=== PATIENT | female | born 1935 | race Hispanic/Latino ===

== ENCOUNTER 2017-06-29 13:45 | Emergency (ER) | payer MEDICARE, BC ==
[2017-06-29 13:51] VITALS: RESP 18; TEMP 98; O2SAT 97; BMI 35.1
[2017-06-29] MEDS ORDERED: TDAP Vaccine 0.5 mL Syr IM ONE (14:00)
--- NOTE | 2017-06-29 14:03 | ED PDOC ---
Arrival/HPI - General Chief Complaint: Trauma Time Seen by Provider: 06/29/17 13:56 Historian: Patient - History of Present Illness Narrative History of Present Illness (Text): 06/29/17 14:00 82 y/o female w/ pmhx of htn, hld, s/p hysterectomy , cad on asa presents s/p accidental trip and fall backwards after going up an escalator running in the direction against her, denies loc/antecedent symptoms, c/o occipital swelling/ dull headache but no nausea /vomiting nor focal nor neurological deficits. PMD: Dr. Checo Gonzalez Past Medical History - Provider Review Nursing Documentation Reviewed: Yes - Infectious Disease Hx of Infectious Diseases: None - Cardiac Hx Cardiac Disorders: Yes Hx Hypertension: Yes Other/Comment: stent in L carotid - Pulmonary Hx Respiratory Disorders: No - Neurological Hx Neurological Disorder: No - HEENT Hx HEENT Disorder: Yes Hx Glaucoma: Yes Other/Comment: glasses - Renal Hx Renal Disorder: No - Endocrine/Metabolic Hx Endocrine Disorders: No - Hematological/Oncological Hx Blood Transfusions: No Hx Blood Transfusion Reaction: No - Integumentary Hx Dermatological Disorder: No Hx Basal Cell Carcinoma: No - Musculoskeletal/Rheumatological Hx Musculoskeletal Disorders: Yes Hx Arthritis: Yes - Gastrointestinal Hx Gastrointestinal Disorders: No - Genitourinary/Gynecological Hx Genitourinary Disorders: No - Psychiatric Hx Psychophysiologic Disorder: No Hx Substance Use: No - Surgical History Hx Hysterectomy: Yes Other/Comment: 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 stent in L carotid - Anesthesia Hx Anesthesia: Yes Hx Anesthesia Reactions: No Hx Malignant Hyperthermia: No Family/Social History - Physician Review Nursing Documentation Reviewed: Yes Family/Social History: No Known Family HX Smoking Status: Never Smoked Hx Alcohol Use: No Hx Substance Use: No Allergies/Home Meds Allergies/Adverse Reactions: Allergies amoxicillin Allergy (Verified 06/29/17 13:57) RASH Penicillins Allergy (Verified 06/29/17 13:57) RASH Home Medications: Home Meds Medication Instructions Recorded Confirmed Aspirin 81 mg PO DAILY 03/06/13 06/29/17 Atorvastatin Calcium 10 mg PO DAILY 03/06/13 06/29/17 Bimatoprost [Lumigan 5 ml] 5 ml OP DAILY 03/06/13 06/29/17 Dorzolamide HCl/Timolol Maleat 10 ml OP BID 03/06/13 06/29/17 [Dorzolamide Hydrochloride - Timolol Maleate 2] Losartan/Hydrochlorothiazide 1 tab PO DAILY 06/29/17 06/29/17 [Losartan-Hctz 100-25 mg Tab] Metoprolol Succinate [Toprol XL] 50 mg PO DAILY 06/29/17 06/29/17 Review of Systems - Physician Review All systems were reviewed & negative as marked: Yes - Review of Systems Constitutional: Normal Eyes: Normal ENT: Normal Respiratory: Normal Cardiovascular: Normal Gastrointestinal: Normal Genitourinary Female: Normal Musculoskeletal: Normal Skin: Normal Neurological: Normal Endocrine: Normal Hemo/Lymphatic: Normal Psychiatric: Normal Physical Exam Vital Signs Reviewed: Yes Vital Signs Temp Pulse Resp BP Pulse Ox 06/29/17 15:45 79 18 158/79 H 97 06/29/17 13:50 98.0 F 86 18 164/82 H 97 Temperature: Afebrile Blood Pressure: Normal Pulse: Regular Respiratory Rate: Normal Appearance: Positive for: Well-Appearing, Non-Toxic, Comfortable Pain Distress: None Mental Status: Positive for: Alert and Oriented X 3 - Systems Exam Head: Present: Atraumatic, Normocephalic, Tenderness, Contusion, Swelling, Other (3x2 cm occipital hematoma, w/ superfical overlying abrasion ) Pupils: Present: PERRL Extroacular Muscles: Present: EOMI Conjunctiva: Present: Normal Mouth: Present: Moist Mucous Membranes Neck: Present: Normal Range of Motion Respiratory/Chest: Present: Clear to Auscultation, Good Air Exchange. No: Respiratory Distress, Accessory Muscle Use Cardiovascular: Present: Regular Rate and Rhythm, Normal S1, S2. No: Murmurs Abdomen: Present: Normal Bowel Sounds. No: Tenderness, Distention, Peritoneal Signs Back: Present: Normal Inspection Upper Extremity: Present: Normal Inspection. No: Cyanosis, Edema Lower Extremity: Present: Normal Inspection, Other (b/l ilium ttp ). No: Edema Neurological: Present: GCS=15, CN II-XII Intact, Speech Normal Skin: Present: Warm, Dry, Normal Color. No: Rashes Psychiatric: Present: Alert, Oriented x 3, Normal Insight, Normal Concentration Medical Decision Making ED Course and Treatment: 06/29/17 14:06 Impression: A 82 year old female with s/p mechanical fall resulting in occipital swelling and dull headache. Plan: -- Cervical SPinal CT -- Head CT -- Chest X-Ray -- Pelvis X-Ray -- Tylenol -- Boostrix Vaccine -- Reassess and disposition Progress Notes: 06/29/2017 15:[address] IMPRESSION: No acute findings. Dictator: Checo Kidd MD 06/29/2017 15:[address] IMPRESSION: No acute findings. Dictator: Checo Kidd MD 06/29/2017 15:37 Chest X-Ray IMPRESSION: No active disease. Dictator: Checo Kidd MD 06/29/2017 15:37 Pelvis X-Ray IMREPSSION: Unremarkable radiographs of the pelvis. Dictator: Checo Kidd MD 06/29/17 17:10 serial neurological exams wnl , pt ambulatory and feels better, stable for discharge , with head injury directions and advised pmd f/u . - RAD Interpretation Radiology Orders: 06/29/17 13:57 CERVICAL SPINE W/O CONTRAST [CT] Stat HEAD W/O CONTRAST [CT] Stat 06/29/17 13:58 CHEST TWO VIEWS (PA/LAT) [RAD] Stat 06/29/17 13:59 PELVIS ONE VIEW [RAD] Stat - Medication Orders Current Medication Orders: Discontinued Medications Acetaminophen (Tylenol 325mg Tab) 650 mg PO STAT STA Stop: 06/29/17 14:01 Last Admin: 06/29/17 14:35 Dose: 650 mg [facility] Pain/Vitals Document 06/29/17 14:35 AD (Rec: 06/29/17 14:35 AD [id number]) Pain Reassessment Is This A Pain ReAssessment? No Presence of Pain Presence of Pain Yes Pain Scale Used Pain Scale Used Numeric Location Intensity 7 Scale Used Numeric Pain Behavior Facial Grimacing Tetanus/Reduced Diphtheria/Acell Pertussis (Boostrix Vaccine Inj) 0.5 ml IM .ONCE ONE Stop: 06/29/17 14:01 Last Admin: 06/29/17 14:34 Dose: 0.5 ml [facility] Immunization Data Document 06/29/17 14:34 AD (Rec: 06/29/17 14:35 AD [id number]) Immunization Data Vaccine Lot Number [id number] Vaccine Expiration Date 07/29/19 Site Given Left Deltoid Route Intramuscular Immunization Units ml Disposition/Present on Arrival - Present on Arrival Any Indicators Present on Arrival: No History of DVT/PE: No History of Uncontrolled Diabetes: No Urinary Catheter: No History of Decub. Ulcer: No History Surgical Site Infection Following: None - Disposition Have Diagnosis and Disposition been Completed?: Yes Diagnosis: Head injury, Fall (on) (from) other stairs and steps, initial encounter Disposition: HOME/ ROUTINE Disposition Time: 17:12 Patient Plan: Discharge Condition: GOOD Discharge Instructions (ExitCare): Head Injury (ED), Concussion (ED) Print Language: LUXEMBOURGISH Additional Instructions: Retrun for worsiening symptoms especially those listed in your dicharge papers such as focal weakness, gait instability or persistent nause /vomiting. Referrals: Checo Gonzalez MD [Primary Care Provider] - Follow up with primary Forms: [employer] Online Scheduling (Maori)
--- NOTE | 2017-06-29 15:31 | CT ---
PROCEDURE: CT HEAD WITHOUT CONTRAST. HISTORY: occipital point of impact COMPARISON: None available. TECHNIQUE: Axial computed tomography images were obtained through the head/brain without intravenous contrast. Radiation dose: Total exam DLP = 714 mGy-cm. This CT exam was performed using one or more of the following dose reduction techniques: Automated exposure control, adjustment of the mA and/or kV according to patient size, and/or use of iterative reconstruction technique. FINDINGS: HEMORRHAGE: No intracranial hemorrhage. BRAIN: No mass effect or edema. No atrophy or chronic microvascular ischemic changes. VENTRICLES: Unremarkable. No hydrocephalus. CALVARIUM: There is a scalp hematoma over the posterior parietal skull. There is no associated fracture PARANASAL SINUSES: Unremarkable as visualized. No significant inflammatory changes. MASTOID AIR CELLS: Unremarkable as visualized. No inflammatory changes. OTHER FINDINGS: None. IMPRESSION: No acute findings
--- NOTE | 2017-06-29 15:35 | CT ---
PROCEDURE: CT Cervical Spine without contrast HISTORY: Patient fell backwards COMPARISON: None available. TECHNIQUE: Axial computed tomography images were obtained of the cervical spine without the use of intravenous contrast. Coronal and sagittal reformatted images were created and reviewed. Radiation dose: Total exam DLP = 674 mGy-cm. This CT exam was performed using one or more of the following dose reduction techniques: Automated exposure control, adjustment of the mA and/or kV according to patient size, and/or use of iterative reconstruction technique. FINDINGS: VERTEBRAE: No fracture. Normal alignment. No destructive bony lesion. DISCS/SPINAL CANAL/NEURAL FORAMINA: No significant central canal or neural foraminal stenosis. There is severe disc degeneration at C5-6 and C6-7. PARASPINAL SOFT TISSUES: Unremarkable. OTHER FINDINGS: None. IMPRESSION: No acute findings
--- NOTE | 2017-06-29 15:39 | RAD ---
HISTORY: s/p fall COMPARISON: No prior. TECHNIQUE: Chest PA and lateral FINDINGS: LUNGS: No active pulmonary disease. PLEURA: No significant pleural effusion identified. No pneumothorax apparent. CARDIOVASCULAR: Normal. OSSEOUS STRUCTURES: No significant abnormalities. VISUALIZED UPPER ABDOMEN: Normal. OTHER FINDINGS: None. IMPRESSION: No active disease.
--- NOTE | 2017-06-29 15:40 | RAD ---
PROCEDURE: Radiographs of the pelvis. HISTORY: fall, b/l ilium pain COMPARISON: None. FINDINGS: BONES: Pelvic Bones: Unremarkable. Hips: Grossly unremarkable. JOINTS: Sacroiliac Joints: Unremarkable. Pubic Symphysis: Unremarkable. OTHER FINDINGS: None. IMPRESSION: Unremarkable radiographs of the pelvis.
[2017-06-29 15:51] VITALS: BP 158/79; PULSE 79
== END 2017-06-29 17:30 | disposition home or self-care (01) ==
LOC: ED 13:45
DX: S09.90XA Unspecified injury of head, initial encounter (principal); W01.0XXA Fall on same level from slipping, tripping and stumbling without subsequent striking against object, initial encounter; I10 Essential (primary) hypertension; E78.5 Hyperlipidemia, unspecified; Z79.82 Long term (current) use of aspirin; Z23 Encounter for immunization; I25.10 Atherosclerotic heart disease of native coronary artery without angina pectoris; Z88.0 Allergy status to penicillin

== ENCOUNTER 2018-11-23 06:08 | Outpatient (CLI) | payer MEDICARE, BC | END 2018-11-23 06:09 | disposition home or self-care (01) | LOC: CARDIO 06:08 ==

== ENCOUNTER 2018-12-22 06:11 | Day surgery (SDC) | payer MEDICARE, BC ==
[2018-12-12 14:05] VITALS: BMI 34.2
--- NOTE | 2018-12-22 04:00 | HP ---
DATE OF EXAM: 12/22/2018 REASON FOR ADMISSION: Left heart cath possible angioplasty, abnormal stress test. BRIEF CLINICAL HISTORY: This is an 83-year-old female with past medical history significant for hypertension, hyperlipidemia, aortic stenosis, aortic regurgitation, admitted for elective cardiac cath possible angioplasty because of abnormal stress test. The patient denies any chest pain, shortness of breath, any palpitations. PAST MEDICAL HISTORY: Significant for moderate aortic stenosis, moderate aortic regurgitation, moderate mitral regurgitation, hypertension, hyperlipidemia. SOCIAL HISTORY: Denies any history of alcohol abuse. CURRENT MEDICATIONS: The patient is taking Tylenol one tablet every 6 hours p.r.n., eye drops timolol maleate in both eyes twice a day, Patricia-D, meloxicam 15 mg daily, Meclizine, Antivert 25 mg daily, Losartan 100 mg/hydrochlorothiazide 25 mg daily, carbamazepine extended release 100 mg twice a day, Lumigan eye drops 2.5 mg twice, atorvastatin 10 mg daily, aspirin 81 mg daily, metoprolol tartrate 25 mg p.o. b.i.d. ALLERGIES: AMOXICILLIN, PENICILLIN, AND SEASONAL ALLERGIES. REVIEW OF SYSTEMS: As per HPI. PHYSICAL EXAMINATION GENERAL: As follows; height of the patient 5 feet 1 inch, weight of the patient 180 pounds, body mass index 35 kg/m2. VITAL SIGNS: Temperature afebrile, heart rate 64, blood pressure 160/80. HEENT: PERRLA. Extraocular muscles intact. NECK: Supple. No carotid bruits or thyromegaly. CHEST: Clear to auscultation. HEART: S1, S2 regular. ABDOMEN: Soft. EXTREMITIES: Clubbing and cyanosis negative. RECENT CARDIAC WORKUP FOLLOWS: The patient had an echocardiography done 11/10/2018, that shows ejection fraction 55%, moderate aortic stenosis, mean gradient 38 mmHg consistent with moderate aortic stenosis, [id number] aortic regurgitation, moderate mitral regurgitation, trace tricuspid regurgitation. The patient has a stress test dated 11/23/2018, that revealed abnormal myocardial profusion study, partial reversible anteroseptal inferolateral defect suspicious for ischemia, normal gated wall motion, ejection fraction reported 76% when comparison was made from the last study dated 10/20/2017, these anteroseptal and inferolateral ischemic changes are new as compared to before. IMPRESSION: An 83-year-old female with past medical history of hypertension, hyperlipidemia, glaucoma, abnormal stress with moderate aortic stenosis, moderate aortic regurgitation, moderate mitral regurgitation, admitted for elective cardiac cath possible angioplasty, abnormal stress test. Risks, benefits, alternative explained to the patient. The patient agreeable proceed for cardiac catheterization. Will load her with Plavix and await the blood is available, will proceed for cardiac catheterization. Further recommendation after the cardiac catheterization. Will follow with you. Thank you Dr. Quinones for providing us the opportunity in taking care of the patient, Gloria Millan Greg Gunn MD
[2018-12-22] MEDS ORDERED: Lidocaine PF 2% (5 ml) Inj (For Cardiac Arrhy) ONE (07:15)
[2018-12-22] MEDS ORDERED: Phenylephrine 10 mg/ml Inj ONE (07:15)
[2018-12-22] MEDS ORDERED: Verapamil 2 ML ONE (07:15)
[2018-12-22] MEDS ORDERED: Iodixanol 320 MG/ML 200 ML BOTTLE IV ONE (07:16)
[2018-12-22] MEDS ORDERED: Iodixanol 320 MG/ML 100 ML BOTTLE IV ONE (07:16)
[2018-12-22] MEDS ORDERED: Nitroglycerin 50mg in D5W 50 MG/250 ML BOTTLE IV ONE (07:16)
[2018-12-22] MEDS ORDERED: Iohexol 350mgl/ml 50 ML ONE (07:16)
[2018-12-22 07:18] LABS: BASO # 0.08 K/mm3 (0.0-2.0); BASO % 0.9 % (0.0-3.0); EOS # 0.5 (0.0-0.7); HEMOGLOBIN 13.2 g/dL (12.0-16.0); LYMPH % 23.4 % (22.0-35.0); MEAN CELL VOLUME 97.4 fl (80.0-105.0); MEAN CORPUSCULAR HEMOGLOBIN 31.2 pg (25.0-35.0); MEAN PLATELET VOLUME 10.3 fl (7.0-11.0); MONO # 0.8 (0.1-0.6); MONO % 9.2 % (1.0-6.0); RBC 4.23 10^6/uL (3.5-6.1); RED CELL DISTRIBUTION WIDTH 12.8 % (11.5-14.5); WHITE BLOOD COUNT 8.7 10^3/uL (4.5-11.0)
[2018-12-22 07:25] LABS: INR 0.98; PARTIAL THROMBOPLASTIN TIME 33.2 Seconds (26.9-38.3); PROTHROMBIN TIME 11.1 SECONDS (9.4-12.5)
[2018-12-22] MEDS ORDERED: Midazolam 2 MG/2 ML VIAL ONE ×2 (07:32→07:58)
[2018-12-22 07:43] LABS: LDL CHOLESTEROL 119 mg/dL (0-129)
[2018-12-22 07:51] LABS: BLOOD UREA NITROGEN 21 mg/dL (7-21); GFR NON-AFRICAN AMERICAN 60; HDL CHOLESTEROL 45 mg/dL (29-60)
[2018-12-22] MEDS ORDERED: Sodium Chloride 0.9% 1,000 ML IV SCH (09:30)
[2018-12-22 09:49] VITALS: TEMP 97.8
--- NOTE | 2018-12-22 10:15 | CPOSTOP ---
DATE: 12/22/2018 CARDIOVASCULAR LAB POST PROCEDURE DICTATING PHYSICIAN: Greg Gunn MD SHIPPING SUPPORT CLERK: Tejal door technician. TYPE OF ANESTHESIA: Moderate conscious sedation. Total 3 mg of Versed, 150 of fentanyl given. PRE-PROCEDURE DIAGNOSES: Unstable angina, abnormal stress test, aortic stenosis. PROCEDURE PERFORMED: 1. Left heart catheterization. 2. Right heart catheterization. 3. Left subclavian injection. FINDINGS: Left subclavian 90% stenosis, one-vessel CAD, RCA total chronic occluded, [id number] aortic stenosis. FINAL DIAGNOSIS: One-vessel coronary artery disease, left subclavian stenosis, [id number] aortic stenosis. POST PROCEDURE CONDITION: Stable. VASCULAR ACCESS SITE: Started left radial, but because of stenosis and subclavian tortuosity, did right femoral access and did a complete heart catheterization of right femoral artery and right femoral vein. CLOSURE DEVICE: 1. TR band left radial. 2. Mynx on right femoral artery and also Mynx for the right femoral vein. TOTAL RADIATION DOSE: 85356.6 mGy unit. CUMULATIVE DOSE: 1711 mGy unit. FLUORO TIME: 12.6 minutes. Greg Gunn MD
--- NOTE | 2018-12-22 10:46 | CARD ---
APPROVED REPORT Date of service: 12/22/2018 EKG Measurement Heart [id number] <Conclusion> Normal sinus rhythm Left axis deviation Minimal voltage criteria for LVH, may be normal variant Abnormal ECG
[2018-12-22] MEDS ORDERED: Bacitracin 500 Units/gm Oint Foilpak UD ONE (12:19)
[2018-12-22 12:42] VITALS: RESP 16; O2SAT 96
[2018-12-22] MEDS ORDERED: Potassium Chloride 20 mEq ER Tab PO ONE ×3 (14:00→14:57)
[2018-12-22 16:09] VITALS: BP 156/66; PULSE 66
--- NOTE | 2018-12-23 16:28 | CARD ---
APPROVED REPORT Date of service: 12/22/2018 Procedure(s) performed: Complete Heart Catheterization Angiogram of left Subclavian artery. HISTORY The patient is a 83 year-old female with a history of : most recent EF: 76%. (EF Method: RADIONUCLIDE), peripheral vascular disease, tobacco history() : The patient is a former smoker , hypertension , dyslipidemia , Hx of , AR and abnormal stress test admitted for LHC/ RHC. INDICATION The indication(s) include : positive stress test. CASE TECHNIQUE The patient was brought electively to the Cardiac Catheterization Laboratory in a fasting state and was prepped and draped in a sterile manner. The right femoral groin was infiltrated with 2% Lidocaine subcutaneous anesthesia. A 6 Fr x 11 cm Meggan sheath was inserted into the right femoral artery without difficulty. Coronary angiography was performed using coronary diagnostic catheters. The left coronary system was accessed and visualized with a Diagnostic ,5 Fr JL 3.5 catheter. The right coronary system was accessed and visualized with a Diagnostic ,5 Fr JR 4 catheter. The left ventricle was accessed and visualized with a 5 Fr Pigtail 145 (Angled) catheter. Left ventricular/Aortic Valve gradient assessed on pullback. Left ventriculogram was performed in CHAWLA projection. Closure device was deployed with a Fr TR Band (Regular) without any complications. The patient tolerated the procedure well and there were no complications associated with the procedure. Procedure started from Left Radial but catheter could not Be advanced Beyond Left sub clavian artery B/c of critical Left sub clavian stenosis, So LHC/RHC completed from RFA/ RFV Vessel Analysis The patient's coronary anatomy is right dominant. The left main coronary artery is a medium size vessel with diffuse calcification noted throughout this vessel and without significant stenosis. The left main bifurcates to the left anterior descending and circumflex. The left anterior descending artery is a medium size vessel with diffuse calcification noted throughout this vessel and without significant stenosis. sofi tortous Vessel The first diagonal branch is a medium size vessel with diffuse calcification noted throughout this vessel and without significant stenosis. The circumflex artery is a medium size vessel with diffuse calcification noted throughout this vessel and without significant stenosis. Very tortous vessel The first obtuse marginal branch is a medium size vessel with diffuse calcification noted throughout this vessel and without significant stenosis. Very tortous vessel The second obtuse marginal branch is a medium size vessel with diffuse calcification noted throughout this vessel and without significant stenosis. Very tortous The third obtuse marginal branch is a medium size vessel with diffuse calcification noted throughout this vessel and without significant stenosis. The right coronary artery is a medium size vessel with diffuse calcification noted throughout this vessel and with significant stenosis. There is a 100% stenosis in the mid segment. distal Rca is well collatertalized from Irene Left sub clavian angiogram done revealed 90% left subclavian stenosis. Left Ventricle The left ventricle is normal in size with normal contractility. The left ventricular ejection fraction is estimated to be 75%. The left ventricular end diastolic pressure is 20 mmHg. Peak to Peak 24 mm gradient across aortic valve, LV-184/20 and Ao-168/60 Right Heart Cath Findings The Right Atrial Pressure is 6-7 mmHg. The Right Ventricular Pressure is 52/10 mmHg. The Pulmonary Artery Pressure is 51/16 mmHg. with a mean of 28 mmof Hg The Pulmonary Catheter Wedge Pressure is 16 mmHg. PVR 2.66 Wood units. The Cardiac Output is 4.53 L/min. The Cardiac index is 2.50 L/min/m2. Valves The peak gradient across the aortic valve is 24 mmHg. Aortic stenosis is present. The aortic valve area is 0.9 cm2. Conclusion One vessel CAD RCA GOVERNMENT AUDITOR, collateralized from LAD. Heavily calcified and very tortous coronaries. Preserved LV FX, EF_75%, EDP-20 mmof Hg. RHC: RA-6-7 , RV-52/10, PA-51/16, with a mean of 28. PCW-16, CO-4.5, CI-2.7, PVR-2.66 Wood Units LV-184/20, Ao-168/60, Peak to Peak 24 mm gradient across aortic valve. Calculated ANDREEA-0.9 cm2 Recommendations CHACHA to assess severity of , after that if severe As then would consider TAVR and PTCA of Left subclavian artery, otherwise only PTCa of Left Subclavian artery and monitor progression by Echo. Pt has been scheduled for CHACHA on 12/29/2018. CCl Drs. Gonzalez/ Gwen.
== END 2018-12-22 16:00 | disposition home or self-care (01) ==
LOC: CATH 06:11
PROVIDERS: ATTEND Internal Medicine Cardiovascular Disease
DX: I25.10 Atherosclerotic heart disease of native coronary artery without angina pectoris (principal); I08.0 Rheumatic disorders of both mitral and aortic valves; I10 Essential (primary) hypertension; E78.5 Hyperlipidemia, unspecified; I73.9 Peripheral vascular disease, unspecified; H40.9 Unspecified glaucoma; Z87.891 Personal history of nicotine dependence; Z88.0 Allergy status to penicillin
CPT/HCPCS: 36415; 80048; 80061; 85025; 85610; 85730; 86850; 86900; 93005; 93460; 99152; 99153; C1760; C1769 ×4; C1887 ×2; C1894; C2629; J1644 ×2; J1940; J2250; J3010; J7030; Q9966

== ENCOUNTER 2018-12-29 09:08 | Day surgery (SDC) | payer MEDICARE, BC ==
[2018-12-12 14:05] VITALS: BMI 34.2
[2018-12-29] MEDS ORDERED: Midazolam 2 MG/2 ML VIAL ONE (11:02)
[2018-12-29] MEDS ORDERED: Flumazenil 0.1 mg/ml Inj (5ml) IVP ONE (11:03)
[2018-12-29] MEDS ORDERED: Naloxone 0.4 mg/ml Inj (Adult) ONE (11:03)
[2018-12-29] MEDS ORDERED: Midazolam 2 MG/2 ML VIAL IV ONE ×4 (11:19→11:44)
[2018-12-29] MEDS ORDERED: Sodium Chloride 0.9% 1,000 ML IV SCH (12:15)
[2018-12-29 13:20] VITALS: BP 133/56; PULSE 67; RESP 20; TEMP 98; O2SAT 98
--- NOTE | 2018-12-29 17:46 | CARD ---
APPROVED REPORT Date of service: 12/29/2018 EXAM: Transesophageal echocardiogram with color flow Doppler. INDICATION AORTIC STENOSIS -MITRAL REGURGITATION 2D DIMENSIONS LVOT Diameter1.7 (1.8-2.4cm) M-Mode DIMENSIONS Aortic Root2.70 (2.2-3.7cm)Aortic Cusp Exc.1.00 (1.5-2.0cm) Aortic Valve AoV Peak Dbqajoez428.0cm/sAoV VTI48.7cmAO Peak GR.57mmHg LVOT Peak Uhkkahdw417.0cm/Philippe Mean GR.12mmHgAVA (VMAX)0.87cm2 Mitral Valve E/A ratio0.0 TDI E/Lateral E'0.0E/Medial E'0.0 Reason For Test : to assess severity of PROCEDURE After obtaining informed consent, patient underwent transesophageal echo in the Echo Lab. Type of Sedation : Conscious Sedation Sedation was administered by Dr machado. Sedation was achieved with Versed and fentanyl 2.5 and 50 mcg intravenously. Transesophageal probe was inserted and advanced into esophagus without difficulty. The CHACHA was performed without complications. Throughout the procedure, the blood pressure, pulse oximetry, cardiac rhythm, and rate were monitored. The patient tolerated the procedure without adverse effects. Recovery from conscious sedation was uneventful and vital signs were stable. LEFT VENTRICLE The left ventricle is normal size. There is mild concentric left ventricular hypertrophy. Proximal septal thickening is noted, with Significant turbulence in LVOT noted. The left ventricular function is normal.EF-65% There is normal LV segmental wall motion. No left ventricle thrombus noted on this study. There is no ventricular septal defect visualized. There is no left ventricular aneurysm. RIGHT VENTRICLE The right ventricle is normal size. There is normal right ventricular wall thickness. The right ventricular systolic function is normal. ATRIA The left atrium is mildly dilated. The right atrium size is normal. The interatrial septum is intact with no evidence for an atrial septal defect. AORTIC VALVE The aortic valve is calcified and displays decreased opening. There is mild to moderate aortic regurgitation. There is moderately severe valvular aortic stenosis. ANDREEA 0.9 cm2 There is no aortic valvular vegetation. MITRAL VALVE Mitral annular calcification is mild. The mitral valve leaflets are thickened. There is no evidence of mitral valve prolapse. There is no mitral valve stenosis. Mitral regurgitation is moderate to severe when SBP>140 mmof Hg. Mitral regurgitation is moderate when KDC=778 mm of Hg. TRICUSPID VALVE The tricuspid valve leaflets display thickening. There is mild tricuspid regurgitation. There is no tricuspid valve prolapse or vegetation. There is no tricuspid valve stenosis. PULMONIC VALVE The pulmonic valve is mildly thickened. There is trace pulmonic valvular regurgitation. There is no pulmonic valvular stenosis. GREAT VESSELS The aortic root is normal in size. The ascending aorta is normal in size. The pulmonary artery is normal. The IVC is normal in size and collapses >50% with inspiration. PERICARDIAL EFFUSION There is no pericardial effusion. There is no pleural effusion. <Conclusion> The left ventricle is normal size. There is mild concentric left ventricular hypertrophy. Proximal septal thickening is noted, with Significant turbulence in LVOT noted. The left ventricular function is normal.EF-65% The aortic valve is calcified and displays decreased opening. There is mild to moderate aortic regurgitation. There is moderately severe valvular aortic stenosis. ANDREEA 0.9 cm2 Mitral regurgitation is moderate to severe when SBP>140 mmof Hg. Mitral regurgitation is moderate when IXT=828 mm of Hg. There is mild tricuspid regurgitation. The IVC is normal in size and collapses >50% with inspiration. There is no pleural effusion. Velocity in CAMPOS>0.4 m/s Moderate Flt plaque noted in descending aorta. F/u office vists to assess symptoms of , if remains symptomatic consider TAVR and JEWELRY MAKING INSTRUCTOR of Left Sub clavian arery and if asymptomatic then close F/U for As progression and PTCa of left Sub-clavian artery, ( by cath and echo ANDREEA 0.9 cm2). Cc; drs. Gonzalez/ bertha.
== END 2018-12-29 16:30 | disposition home or self-care (01) ==
LOC: TEE 09:08
PROVIDERS: ATTEND Internal Medicine Cardiovascular Disease
DX: I08.3 Combined rheumatic disorders of mitral, aortic and tricuspid valves (principal); I10 Essential (primary) hypertension; E78.5 Hyperlipidemia, unspecified; H40.9 Unspecified glaucoma; Z88.1 Allergy status to other antibiotic agents; Z88.0 Allergy status to penicillin; Z91.048 Other nonmedicinal substance allergy status
CPT/HCPCS: 93312; J2250; J3010; J7030; Q9957